=== PATIENT | male | born 1930 | race Caucasian/White ===

== ENCOUNTER 2019-10-30 12:24 | Inpatient (IN) | payer MEDICARE ==
[~2019-10-30] VITALS: Ht 188 cm; Wt 83.0 kg
[2019-10-30] MEDS ORDERED: LIDOCAINE 1% PF 2 ML VIAL. ONE (12:35)
[2019-10-30] MEDS ORDERED: HEPARIN for ARTERIAL LINE 0 ML ONE (12:35)
[2019-10-30] MEDS ORDERED: IODIXANOL 320 MG/ML 100 ML VIAL. ONE (12:35)
[2019-10-30 12:48] LABS: BASO % 1 % (0-3); EOS # 0.3 x10^3/uL (0.0-0.7); EOS % 4 % (0-3); HEMATOCRIT 28.4 % (39.0-53.0); HEMOGLOBIN 9.6 g/dL (13.0-17.5); LYMPH # 1.1 x10^3/uL (1.0-4.8); LYMPH % 12 % (24-48); MEAN CORPUSCULAR HEMOGLOBIN 32 pg (25-35); MEAN CORPUSCULAR HGB CONC 34 g/dL (31-37); MEAN CORPUSCULAR VOLUME 95 fL (79-100); MONO # 0.7 x10^3/uL (0.0-1.1); MONO % 9 % (0-9); NEUT # 6.6 x10^3/uL (1.8-7.7); NEUT % 75 % (31-73); PLATELET COUNT 187 x10^3/uL (140-400); RED BLOOD COUNT 2.99 x10^6/uL (4.30-5.70); RED CELL DISTRIBUTION WIDTH 14.1 % (11.5-14.5); WHITE BLOOD COUNT 8.8 x10^3/uL (4.0-11.0)
[2019-10-30] MEDS ORDERED: HEPARIN for IV BOLUS 10,000 UNIT/10 ML VIAL. ONE (12:48)
[2019-10-30] MEDS ORDERED: MIDAZOLAM HCL/PF 2 MG/2 ML VIAL. ONE (12:48)
[2019-10-30] MEDS ORDERED: fentaNYL PF VIAL 100 MCG/2 ML VIAL ONE (12:48)
[2019-10-30] MEDS ORDERED: NITROGLYCERIN 200 MCG/2 ML SYRINGE FOR CATH/VASC LAB. ONE (12:49)
[2019-10-30] MEDS ORDERED: VERAPAMIL 5 MG/2 ML VIAL. ONE (12:49)
[2019-10-30 12:56] LABS: CREATININE 3.6 mg/dL (0.7-1.3); GFR 16.1; POTASSIUM 5.1 mmol/L (3.5-5.1)
--- NOTE | 2019-10-30 12:56 | RAD ---
Chest AP portable 10/30/2019. Reason for exam: Shortness of breath. There is evidence of some infiltrate in the right upper lobe abutting the minor fissure. The lungs otherwise appear clear and no pleural fluid is seen. Heart size is grossly normal. IMPRESSION: Mild right-sided infiltrate. Electronically signed by: Ace Jolly Jr., MD (10/30/2019 12:53 PM) [facility]
[2019-10-30 12:57] LABS: PROTHROMBIN TIME PATIENT 13.5 SEC (11.7-14.0)
[2019-10-30 13:02] LABS: ALBUMIN 2.9 g/dL (3.4-5.0); ALBUMIN/GLOBULIN RATIO 0.9 (1.0-1.7); MAGNESIUM 1.8 mg/dL (1.8-2.4); TOTAL BILIRUBIN 0.3 mg/dL (0.2-1.0); TOTAL PROTEIN 6.1 g/dL (6.4-8.2)
--- NOTE | 2019-10-30 13:08 | PDOC2 ---
CARDIOLOGY CONSULT NOTE CHIEF COMPLAINT: Chest pain and pressure HPI: 89-year-old man who presented to the ER due to chest pain. He apparently was in his usual state of health and was driving to a baseball game with his daughter and began to notice some chest discomfort. This progressed over the next hour or so to point where he was very weak and unable to move. 911 was called and in route to the STEMI team was activated due to inferior ST-T elevations. Upon arrival to the hospital the patient was hypotensive and had some chest pressure. Repeat EKG revealed subtle ST-T wave changes suggestive of ischemia but not confirmatory of any significant ST elevation. The patient had improvement in his pain and dyspnea. I had a long discussion with the patient's daughter regarding patient's past medical history. He apparently was offered a cardiac catheterization at the [facility] but this was deferred in light of his renal failure history. At this present time the patient wishes to have further cardiac evaluation given that he had significant chest pain and discomfort. His family is also in agreement. PMHX: Coronary artery disease, presumed Hypertension Dyslipidemia Chronic kidney disease Anemia SOCHX: No alcohol, tobacco or illicit drug use. FAMHX: Noncontributory CURRENT MEDS: Currently unavailable for review ALLERGIES: No known drug allergies ROS: Negative for 10 out of 14 systems reviewed unless otherwise mentioned above in HPI PHYSICAL EXAM: Vital Signs/I&O: Blood pressure 80/40, heart rate 62 Physical Exam: GEN.: Currently the patient is no acute distress, when he first arrived he was disoriented due to hypotension HEENT: Head is normocephalic, atraumatic NECK: Supple. LUNGS: Clear to auscultation. HEART: RRR, S1, S2 present. Peripheral pulses intact ABDOMEN: Soft, nontender. Positive bowel sounds. EXTREMITIES: Without any cyanosis. NEUROLOGIC: Normal speech, normal tone PSYCHIATRIC: Normal affect, normal mood. SKIN: No ulcerations DIAGNOSTIC TESTING: EKG is suggestive of subtle inferior ST elevations Labs are reviewed notable for chronic kidney disease with a creatinine 3.6 and anemia. Lab Laboratory Tests Test 10/30/19 12:30 White Blood Count 8.8 x10^3/uL (4.0-11.0) Red Blood Count 2.99 x10^6/uL (4.30-5.70) L Hemoglobin 9.6 g/dL (13.0-17.5) L Hematocrit 28.4 % (39.0-53.0) L Mean Corpuscular Volume 95 fL (79-100) Mean Corpuscular Hemoglobin 32 pg (25-35) Mean Corpuscular Hemoglobin Concent 34 g/dL (31-37) Red Cell Distribution Width 14.1 % (11.5-14.5) Platelet Count 187 x10^3/uL (140-400) Neutrophils (%) (Auto) 75 % (31-73) H Lymphocytes (%) (Auto) 12 % (24-48) L Monocytes (%) (Auto) 9 % (0-9) Eosinophils (%) (Auto) 4 % (0-3) H Basophils (%) (Auto) 1 % (0-3) Neutrophils # (Auto) 6.6 x10^3/uL (1.8-7.7) Lymphocytes # (Auto) 1.1 x10^3/uL (1.0-4.8) Monocytes # (Auto) 0.7 x10^3/uL (0.0-1.1) Eosinophils # (Auto) 0.3 x10^3/uL (0.0-0.7) Basophils # (Auto) 0.0 x10^3/uL (0.0-0.2) Sodium Level 141 mmol/L (136-145) Potassium Level 5.1 mmol/L (3.5-5.1) Chloride Level 109 mmol/L (98-107) H Carbon Dioxide Level 19 mmol/L (21-32) L Anion Gap 13 (6-14) Blood Urea Nitrogen 52 mg/dL (8-26) H Creatinine 3.6 mg/dL (0.7-1.3) H Estimated GFR (Cockcroft-Gault) 16.1 BUN/Creatinine Ratio 14 (6-20) Glucose Level 231 mg/dL (70-99) H Calcium Level 8.0 mg/dL (8.5-10.1) L Total Bilirubin 0.3 mg/dL (0.2-1.0) Aspartate Amino Transf (AST/SGOT) 25 U/L (15-37) Alkaline Phosphatase 129 U/L (46-116) H Total Protein 6.1 g/dL (6.4-8.2) L Albumin 2.9 g/dL (3.4-5.0) L Albumin/Globulin Ratio 0.9 (1.0-1.7) L Laboratory Tests 10/30/19 12:30 ASSESSMENT: 1. Acute coronary syndrome in the setting of chronic kidney disease PLAN: 1. I discussed extensively the risks and benefits with the patient regarding cardiac catheterization. In light of the fact that he had significant cardiac symptoms and he was suggested to have a prior cardiac catheterization I think is reasonable despite his chronic kidney disease to proceed with defining his coronary anatomy and then subsequently determine intervention as necessary. Thank you this consultation. Further recommendations pending cardiac catheterization MAREI SPENCER MD Oct 30, 2019 13:08
[2019-10-30] MEDS ORDERED: ATROPINE 0.5 MG/5 ML DISP.SYRINGE. IV ONE (13:45)
--- NOTE | 2019-10-30 14:26 | PHYS DOC ---
Past Medical History Past Medical History: Diabetes-Type II, Hypertension, Renal Failure Past Surgical History: No Surgical History Smoking Status: Former Smoker Alcohol Use: None General Adult EDM: Chief Complaint: CHEST PAIN HPI: HPI: Patient is a 89 year old male who was brought here by EMS as a code STEMI activation. Initial report was due to syncopal episode and dizziness. Patient was in his car being taken to a baseball game with his daughter, when he suddenly feels dizzy and went blind. Patient passed out for a few. Patient started having chest pain, patient had history of chest pain in the past, was evaluated by miller head assistant wet process at the [facility], recommended to have cardiac catheterization at the time however due to his stage IV renal failure, he declined the procedure. EMS were called, they were taken the patient to the [facility], the initial EKG was sinus rhythm, no ST segment elevation. However the chest pain became more severe so they did another rhythm strip, show slight ST segment elevation in leads II, III and aVF, patient was given 324 mg aspirin, 1 dose of nitroglycerin, 50 traci of fentanyl IV, EMS called here to activate code STEMI and brought patient here. Upon arrival to the ER, patient was pale and diaphoresis, he was in distress, he was bradycardic and extremely hypotensive. His heart rate was in the 38 beats per minutes, blood pressure was 55/35. Patient was given IV fluid, 0.5 mg of atropine, and his heart rate slowly improving here blood pressures slowly improved. ophthalmology technician Dr. Fuentes was at bedside, he evaluated patient, looked at the EKG. Patient's chest pain improved , was considering taking patient to [facility]. Review of Systems: Review of Systems: Constitutional: Denies fever or chills. [] Eyes: Denies change in visual acuity. [] HENT: Denies nasal congestion or sore throat. [] Respiratory: Denies cough or shortness of breath. [] Cardiovascular: Positive chest pain GI: Denies abdominal pain, nausea, vomiting, bloody stools or diarrhea. [] : Denies dysuria. [] Musculoskeletal: Denies back pain or joint pain. [] Integument: Denies rash. [] Neurologic: Denies headache, focal weakness or sensory changes. Positive for syncope Endocrine: Denies polyuria or polydipsia. [] Lymphatic: Denies swollen glands. [] Psychiatric: Denies depression or anxiety. [] Heart Score: HEART Score for Chest Pain: HEART Score for Chest Pain Response (Comments) Value History Highly Suspicious 2 ECG Nonspecific Repolarizatio 1 Age > 65 2 Risk Factors >3 Risk Factors or Hx CAD 2 Troponin < Normal Limit 0 Total 7 Risk Factors: Risk Factors: DM, Current or recent (<one month) smoker, HTN, HLP, family history of CAD, obesity. Risk Scores: Score 0 - 3: 2.5% MACE over next 6 weeks - Discharge Home Score 4 - 6: 20.3% MACE over next 6 weeks - Admit for Clinical Observation Score 7 - 10: 72.7% MACE over next 6 weeks - Early Invasive Strategies Current Medications: Current Medications Medications (Trade) Dose Ordered Sig/Pedro Start Time Stop Time Status Last Admin Dose Admin Atropine Sulfate (ATROPINE 0.5mg SYRINGE) 0.5 mg 1X ONCE 10/30/19 13:45 10/30/19 13:46 DC 10/30/19 12:34 0.5 MG Fentanyl Citrate (Fentanyl 2ml Vial) 100 mcg STK-MED ONCE 10/30/19 12:48 10/30/19 12:49 DC Heparin Sodium (Porcine) (Heparin Sodium) 10,000 unit STK-MED ONCE 10/30/19 12:48 10/30/19 12:49 DC Heparin Sodium/ Sodium Chloride 0 ml @ As Directed STK-MED ONCE 10/30/19 12:35 10/30/19 12:35 DC Iodixanol (Visipaque 320) 100 ml STK-MED ONCE 10/30/19 12:35 10/30/19 12:35 DC Lidocaine HCl (Xylocaine-Mpf 1% 2ml Vial) 2 ml STK-MED ONCE 10/30/19 12:35 10/30/19 12:35 DC Midazolam HCl (Versed) 2 mg STK-MED ONCE 10/30/19 12:48 10/30/19 12:49 DC Nitroglycerin (Nitroglycerin) 200 mcg STK-MED ONCE 10/30/19 12:49 10/30/19 12:49 DC Ondansetron HCl (Zofran) 4 mg PRN Q8HRS PRN 10/30/19 14:30 10/31/19 14:29 Verapamil HCl (Verapamil) 5 mg STK-MED ONCE 10/30/19 12:49 10/30/19 12:49 DC Allergies: Allergies: Allergies Coded Allergies Type Severity Reaction Last Updated Verified Penicillins Allergy Unknown 10/30/19 Yes lovastatin Allergy Unknown 10/30/19 Yes simvastatin Allergy Unknown 10/30/19 Yes Physical Exam: PE: Constitutional: Well developed, well nourished, Moderate acute distress, non- toxic appearance. [] HENT: Normocephalic, atraumatic, bilateral external ears normal, oropharynx moist, no oral exudates, nose normal. [] Eyes: PERRLA, EOMI, conjunctiva normal, no discharge. [] Neck: Normal range of motion, no tenderness, supple, no stridor. [] Cardiovascular: SINUS BRADYCARDIA, regular rhythm, no murmur [] Lungs & Thorax: Bilateral breath sounds clear to auscultation [] Abdomen: Bowel sounds normal, soft, no tenderness, no masses, no pulsatile masses. [] Skin: Warm, dry, PALE... DIAPHORESIS. Back: No tenderness, no CVA tenderness. [] Extremities: No tenderness, no cyanosis, no clubbing, ROM intact, no edema. [] Neurologic: Alert and oriented X 3, normal motor function, normal sensory function, no focal deficits noted. [] Psychologic: Affect normal, judgement normal, mood normal. [] Current Patient Data: Labs: other ROS is negative unless otherwise noted in HPI Laboratory Tests Test 10/30/19 12:30 White Blood Count 8.8 x10^3/uL (4.0-11.0) Red Blood Count 2.99 x10^6/uL (4.30-5.70) L Hemoglobin 9.6 g/dL (13.0-17.5) L Hematocrit 28.4 % (39.0-53.0) L Mean Corpuscular Volume 95 fL (79-100) Mean Corpuscular Hemoglobin 32 pg (25-35) Mean Corpuscular Hemoglobin Concent 34 g/dL (31-37) Red Cell Distribution Width 14.1 % (11.5-14.5) Platelet Count 187 x10^3/uL (140-400) Neutrophils (%) (Auto) 75 % (31-73) H Lymphocytes (%) (Auto) 12 % (24-48) L Monocytes (%) (Auto) 9 % (0-9) Eosinophils (%) (Auto) 4 % (0-3) H Basophils (%) (Auto) 1 % (0-3) Neutrophils # (Auto) 6.6 x10^3/uL (1.8-7.7) Lymphocytes # (Auto) 1.1 x10^3/uL (1.0-4.8) Monocytes # (Auto) 0.7 x10^3/uL (0.0-1.1) Eosinophils # (Auto) 0.3 x10^3/uL (0.0-0.7) Basophils # (Auto) 0.0 x10^3/uL (0.0-0.2) Prothrombin Time 13.5 SEC (11.7-14.0) Prothrombin Time INR 1.1 (0.8-1.1) Activated Partial Thromboplast Time 26 SEC (24-38) Sodium Level 141 mmol/L (136-145) Potassium Level 5.1 mmol/L (3.5-5.1) Chloride Level 109 mmol/L (98-107) H Carbon Dioxide Level 19 mmol/L (21-32) L Anion Gap 13 (6-14) Blood Urea Nitrogen 52 mg/dL (8-26) H Creatinine 3.6 mg/dL (0.7-1.3) H Estimated GFR (Cockcroft-Gault) 16.1 BUN/Creatinine Ratio 14 (6-20) Glucose Level 231 mg/dL (70-99) H Calcium Level 8.0 mg/dL (8.5-10.1) L Magnesium Level 1.8 mg/dL (1.8-2.4) Total Bilirubin 0.3 mg/dL (0.2-1.0) Aspartate Amino Transferase (AST) 25 U/L (15-37) Alanine Aminotransferase (ALT) 40 U/L (16-63) Alkaline Phosphatase 129 U/L (46-116) H Troponin I Quantitative 0.018 ng/mL (0.000-0.055) EP-Enq-T-Type Natriuretic Peptide 585 pg/mL (0-449) H Total Protein 6.1 g/dL (6.4-8.2) L Albumin 2.9 g/dL (3.4-5.0) L Albumin/Globulin Ratio 0.9 (1.0-1.7) L Thyroid Stimulating Hormone (TSH) 0.659 uIU/mL (0.358-3.74) Laboratory Tests 10/30/19 12:30 Laboratory Tests 10/30/19 12:30 Vital Signs: Vital Signs Date Time Temp Pulse Resp B/P (MAP) Pulse Ox O2 Delivery O2 Flow Rate FiO2 10/30/19 12:24 98.0 41 20 58/45 (49) 98 Room Air 98.0 EKG: EKG: EKG was done at 1228, heart rate of 42 beats per minutes, no ST segment elevation ,sinus bradycardia Radiology/Procedures: Radiology/Procedures: [][facility] [address] [place] [address] IMAGING REPORT Signed PATIENT: YOMAIRA EDWARDS ACCOUNT: [id number] : 1930 LOCATION: ER AGE: 89 SEX: M EXAM STATUS: PRE ER ORD. PHYSICIAN: EMMANUELLE MATSON DO REASON: soa PROCEDURE: PORTABLE CHEST 1V Chest AP portable 10/30/2019. Reason for exam: Shortness of breath. There is evidence of some infiltrate in the right upper lobe abutting the minor fissure. The lungs otherwise appear clear and no pleural fluid is seen. Heart size is grossly normal. IMPRESSION: Mild right-sided infiltrate. Electronically signed by: Yomaira Jolly Jr., MD (10/30/2019 12:53 PM) [facility] DICTATED and SIGNED BY: YOMAIRA JOLLY Jr, MD DATE: 10/30/19 1258 Course & Med Decision Making: Course & Med Decision Making Pertinent Labs and Imaging studies reviewed. (See chart for details) Patient is an 89-year-old male who was evaluated in ER due to chest pain, EKG on the field show suspicious for inferior wall IN, code STEMI was activated, patient was seen by miller head assistant wet process Dr. Fuentes, consider cardiac catheterization however due to his stage IV kidney disease, patient declined diagnostic study at this time. Patient will be admitted to the hospital for me dical management. Discussed with Dr. Morin who agrees to admit the patient. Dragon Disclaimer: Dragon Disclaimer: This electronic medical record was generated, in whole or in part, using a voice recognition dictation system. Departure Departure Impression: Primary Impression: Chest pain Additional Impression: Syncope Disposition: ADMITTED INPATIENT Admitting Physician: SB (Dr. Morin) Condition: IMPROVED Referrals: UNKNOWN PCP NAME (PCP) Justicifation of Admission Dx: Justifications for Admission: Justification of Admission Dx: Yes Chronic Renal Failure: Cardiac Arrhythmias EMMANUELLE MATSON DO Oct 30, 2019 14:26
[2019-10-30] MEDS ORDERED: ONDANSETRON PF 4 MG/2 ML VIAL. IV PRN (14:30)
--- NOTE | 2019-10-30 14:31 | PDOC1 ---
History and Physical Date of Admission: Date of Admission DATE: 10/30/19 TIME: 14:28 Chief Complaint: Chief Complain: Chest discomfort History of Present Illness: HPI: This is an elderly male who was at a baseball game and developed chest pain. He is apparently been offered a cardiac cath at the [facility] as well. The ambulance was called the patient was on his way to the [facility] via ambulance but then developed worsening chest pain with some ST changes. The ambulance was diverted to our facility. Patient is now been examined in room 2 where he is slightly improving Upon arrival he was quite hypotensive and bradycardic he apparently did receive some nitroglycerin Cardiology has just talked to the patient and family and we are considering cardiac cath but he has a creatinine of 3.6 Patient is being admitted for now check serial enzymes and serial EKGs and consider cardiac cath I did go ahead and consult nephrology regarding the chronic renal sufficiency Past Medical/Surgical History: PMH/PSH: Probable CAD Hypertension hyperlipidemia Arthritis Allergic rhinitis Anemia Chronic renal insufficiency Allergies: Allergies: Coded Allergies: Penicillins (Verified Allergy, Unknown, 10/30/19) lovastatin (Verified Allergy, Unknown, 10/30/19) simvastatin (Verified Allergy, Unknown, 10/30/19) Family History: Family History: Hypertension and coronary disease Social History: Social History: He is retired he does not drink smoke or take drug Current Medications: Current Medications Current Medications Iodixanol (Visipaque 320) 100 ml STK-MED ONCE .ROUTE ; Start 10/30/19 at 12:35; Stop 10/30/19 at 12:35; Status DC Lidocaine HCl (Xylocaine-Mpf 1% 2ml Vial) 2 ml STK-MED ONCE .ROUTE ; Start 10/30/19 at 12:35; Stop 10/30/19 at 12:35; Status DC Heparin Sodium/ Sodium Chloride 0 ml @ As Directed STK-MED ONCE .ROUTE ; Start 10/30/19 at 12:35; Stop 10/30/19 at 12:35; Status DC Fentanyl Citrate (Fentanyl 2ml Vial) 100 mcg STK-MED ONCE .ROUTE ; Start 10/30/19 at 12:48; Stop 10/30/19 at 12:49; Status DC Midazolam HCl (Versed) 2 mg STK-MED ONCE .ROUTE ; Start 10/30/19 at 12:48; Stop 10/30/19 at 12:49; Status DC Heparin Sodium (Porcine) (Heparin Sodium) 10,000 unit STK-MED ONCE .ROUTE ; Start 10/30/19 at 12:48; Stop 10/30/19 at 12:49; Status DC Verapamil HCl (Verapamil) 5 mg STK-MED ONCE .ROUTE ; Start 10/30/19 at 12:49; Stop 10/30/19 at 12:49; Status DC Nitroglycerin (Nitroglycerin) 200 mcg STK-MED ONCE .ROUTE ; Start 10/30/19 at 12:49; Stop 10/30/19 at 12:49; Status DC Atropine Sulfate (ATROPINE 0.5mg SYRINGE) 0.5 mg 1X ONCE IV Last administered on 10/30/19at 12:34; Start 10/30/19 at 13:45; Stop 10/30/19 at 13:46; Status DC ROS: Review of Systems Review of System REVIEW OF SYSTEMS: GENERAL: Denies weakness SKIN: No bruising, hair changes or rashes. EYES: No blurred, double or loss of vision. NOSE AND THROAT: No history of nosebleeds, hoarseness or sore throat. HEART: No history of palpitations, chest pain or shortness of breath on exertion. LUNGS: Denies cough, hemoptysis, wheezing or shortness of breath. GASTROINTESTINAL: Denies changes in appetite, nausea, vomiting, diarrhea or constipation. GENITOURINARY: No history of frequency, urgency, hesitancy or nocturia. NEUROLOGIC: Denies history of numbness, tingling, or tremor. PSYCHIATRIC: No history of panic, anxiety or depression. ENDOCRINE: No history of heat or cold intolerance, polyuria or polydipsia. EXTREMITIES: Denies joint pain, pain on walking or stiffness. Physical Exam: Vital Signs: Vital Signs Date Time Temp Pulse Resp B/P (MAP) Pulse Ox O2 Delivery O2 Flow Rate FiO2 10/30/19 12:24 98.0 41 20 58/45 (49) 98 Room Air 98.0 Physcial Exam: GEN: No apparent distress. Alert and oriented HEENT: Normal cephalic, atraumatic, external auditory canals are patent EYES: Extraocular muscles are intact, pupil are equally round and reactive to light and accommodation MUSCULOSKELETAL: Well developed , well nourished, good range of motion ENDOCRINE: No thyromegaly was palpated LYMPHATICS: No cervical chain or axillary nodes were noted HEMATOPOIETIC: No bruising NECK: Supple, no JVD, no thyromegaly was noted LUNGS: Clear to auscultation in all lung fang without rhonchi or wheezing HEART: RRR, S!, S2 present. Peripheral pulses intact, no obvious murmurs noted ABDOMEN: Soft, nontender. Positive bowel sounds, no organomegaly, normal bowel sounds EXTREMITIES: Without clubbing, cyanosis, or edema. Pedal pulses intact. Negative Homans sign NEUROLOGIC: Normal speech and tone. A&O x 3, moves all extremities, no obvious focal deficits PSYCHIATRIC: Normal affect, normal mood. Stable SKIN: No ulcerations or rashes, good skin turgor, no jaundice VASCULAR: Good capillary refill, neurovascular bundle appears to be intact Labs: Labs: Laboratory Tests Test 10/30/19 12:30 White Blood Count 8.8 x10^3/uL (4.0-11.0) Red Blood Count 2.99 x10^6/uL (4.30-5.70) Hemoglobin 9.6 g/dL (13.0-17.5) Hematocrit 28.4 % (39.0-53.0) Mean Corpuscular Volume 95 fL (79-100) Mean Corpuscular Hemoglobin 32 pg (25-35) Mean Corpuscular Hemoglobin Concent 34 g/dL (31-37) Red Cell Distribution Width 14.1 % (11.5-14.5) Platelet Count 187 x10^3/uL (140-400) Neutrophils (%) (Auto) 75 % (31-73) Lymphocytes (%) (Auto) 12 % (24-48) Monocytes (%) (Auto) 9 % (0-9) Eosinophils (%) (Auto) 4 % (0-3) Basophils (%) (Auto) 1 % (0-3) Neutrophils # (Auto) 6.6 x10^3/uL (1.8-7.7) Lymphocytes # (Auto) 1.1 x10^3/uL (1.0-4.8) Monocytes # (Auto) 0.7 x10^3/uL (0.0-1.1) Eosinophils # (Auto) 0.3 x10^3/uL (0.0-0.7) Basophils # (Auto) 0.0 x10^3/uL (0.0-0.2) Prothrombin Time 13.5 SEC (11.7-14.0) Prothromb Time International Ratio 1.1 (0.8-1.1) Activated Partial Thromboplast Time 26 SEC (24-38) Sodium Level 141 mmol/L (136-145) Potassium Level 5.1 mmol/L (3.5-5.1) Chloride Level 109 mmol/L (98-107) Carbon Dioxide Level 19 mmol/L (21-32) Anion Gap 13 (6-14) Blood Urea Nitrogen 52 mg/dL (8-26) Creatinine 3.6 mg/dL (0.7-1.3) Estimated GFR (Cockcroft-Gault) 16.1 BUN/Creatinine Ratio 14 (6-20) Glucose Level 231 mg/dL (70-99) Calcium Level 8.0 mg/dL (8.5-10.1) Magnesium Level 1.8 mg/dL (1.8-2.4) Total Bilirubin 0.3 mg/dL (0.2-1.0) Aspartate Amino Transf (AST/SGOT) 25 U/L (15-37) Alanine Aminotransferase (ALT/SGPT) 40 U/L (16-63) Alkaline Phosphatase 129 U/L (46-116) Troponin I Quantitative 0.018 ng/mL (0.000-0.055) YB-Qss-J-Type Natriuretic Peptide 585 pg/mL (0-449) Total Protein 6.1 g/dL (6.4-8.2) Albumin 2.9 g/dL (3.4-5.0) Albumin/Globulin Ratio 0.9 (1.0-1.7) Thyroid Stimulating Hormone (TSH) 0.659 uIU/mL (0.358-3.74) Laboratory Tests Test 10/30/19 12:30 White Blood Count 8.8 x10^3/uL (4.0-11.0) Red Blood Count 2.99 x10^6/uL (4.30-5.70) Hemoglobin 9.6 g/dL (13.0-17.5) Hematocrit 28.4 % (39.0-53.0) Mean Corpuscular Volume 95 fL (79-100) Mean Corpuscular Hemoglobin 32 pg (25-35) Mean Corpuscular Hemoglobin Concent 34 g/dL (31-37) Red Cell Distribution Width 14.1 % (11.5-14.5) Platelet Count 187 x10^3/uL (140-400) Neutrophils (%) (Auto) 75 % (31-73) Lymphocytes (%) (Auto) 12 % (24-48) Monocytes (%) (Auto) 9 % (0-9) Eosinophils (%) (Auto) 4 % (0-3) Basophils (%) (Auto) 1 % (0-3) Neutrophils # (Auto) 6.6 x10^3/uL (1.8-7.7) Lymphocytes # (Auto) 1.1 x10^3/uL (1.0-4.8) Monocytes # (Auto) 0.7 x10^3/uL (0.0-1.1) Eosinophils # (Auto) 0.3 x10^3/uL (0.0-0.7) Basophils # (Auto) 0.0 x10^3/uL (0.0-0.2) Prothrombin Time 13.5 SEC (11.7-14.0) Prothromb Time International Ratio 1.1 (0.8-1.1) Activated Partial Thromboplast Time 26 SEC (24-38) Sodium Level 141 mmol/L (136-145) Potassium Level 5.1 mmol/L (3.5-5.1) Chloride Level 109 mmol/L (98-107) Carbon Dioxide Level 19 mmol/L (21-32) Anion Gap 13 (6-14) Blood Urea Nitrogen 52 mg/dL (8-26) Creatinine 3.6 mg/dL (0.7-1.3) Estimated GFR (Cockcroft-Gault) 16.1 BUN/Creatinine Ratio 14 (6-20) Glucose Level 231 mg/dL (70-99) Calcium Level 8.0 mg/dL (8.5-10.1) Magnesium Level 1.8 mg/dL (1.8-2.4) Total Bilirubin 0.3 mg/dL (0.2-1.0) Aspartate Amino Transf (AST/SGOT) 25 U/L (15-37) Alanine Aminotransferase (ALT/SGPT) 40 U/L (16-63) Alkaline Phosphatase 129 U/L (46-116) Troponin I Quantitative 0.018 ng/mL (0.000-0.055) IF-Hgq-I-Type Natriuretic Peptide 585 pg/mL (0-449) Total Protein 6.1 g/dL (6.4-8.2) Albumin 2.9 g/dL (3.4-5.0) Albumin/Globulin Ratio 0.9 (1.0-1.7) Thyroid Stimulating Hormone (TSH) 0.659 uIU/mL (0.358-3.74) Assessment/Plan Assessment/Plan Chest pain rule out coronary disease in the setting of known chronic renal insufficiency Plan Serial enzymes silica juice Cardiac monitoring Consult cardiology and they have already seen the patient Home meds DVT prophylaxis Full code Consult nephrology Long-term prognosis good Justicifation of Admission Dx: Justifications for Admission: Justification of Admission Dx: Yes Angina: New-Onset TYRON LEIGH III DO Oct 30, 2019 14:31
[2019-10-30 15:30] VITALS: BP 153/78
--- NOTE | 2019-10-30 16:37 | CARD ---
MR#: [id number] Date of Study: 10/30/2019 Ordering Physician: GAGAN SPENCER, Referring Physician: GAGAN SPENCER, Tech: Karli Vealsquez [facility] APPROVED REPORT EXAM: Two-dimensional and M-mode echocardiogram with Doppler and color Doppler. Other Information Quality : Good INDICATION Chest Pain 2D DIMENSIONS Left Atrium(2D)4.4 (1.6-4.0cm)IVSd1.0 (0.7-1.1cm) Aortic Root(2D)3.1 (2.0-3.7cm)LVDd4.9 (3.9-5.9cm) LVOT Diameter2.3 (1.8-2.4cm)PWd0.8 (0.7-1.1cm) LVDs4.1 (2.5-4.0cm)FS (%) 16.0 % SV37.5 mlLVEF(%)50.0 (>50%) M-Mode DIMENSIONS Aortic Cusp Exc1.44 (1.5-2.0cm) Aortic Valve AoV Peak Duy.193.1cm/sAoV VTI42.8cm AO Peak GR.14.9mmHgLVOT VTI 21.40cm AO Mean GR.9mmHgAVA (VTI)2.10cm2 AI P 1/2 Uout079xp Mitral Valve MV E Ptmuodyg19.0cm/sMV DECEL VFBF475yx MV A Lpfdypfm22.2cm/sE/A Ratio0.7 TDI Lateral E' P. V9.46cm/sMedial E' P. V6.24cm/s E/Lateral E'6.4E/Medial E'9.8 Tricuspid Valve TR P. Ecsesgus777ab/sRAP OOQYFKXR3djBw TR Peak Gr.28hgGeRUQD16shRy Pulmonary Vein S1 Jpmoomnm20.3cm/sS2 Fmtwgkre88.05cm/s D2 Hscrnpsu53.1cm/s LEFT VENTRICLE The left ventricle is normal size. There is normal left ventricular wall thickness. The left ventricu lar systolic function is normal and the ejection fraction is within normal range. The Ejection Fracti on is 50-55%. There is normal LV segmental wall motion. Transmitral Doppler flow pattern is Grade I-a bnormal relaxation pattern. RIGHT VENTRICLE The right ventricle is normal size. The right ventricular systolic function is normal. ATRIA The left atrium is mildly dilated. The right atrium size is normal. The interatrial septum is intact with no evidence for an atrial septal defect or patent foramen ovale as noted on 2-D or Doppler imagi ng. AORTIC VALVE The aortic valve is calcified and displays decreased opening. Doppler and Color Flow revealed trace t o mild aortic regurgitation. Calculated aortic valve area is 2.1 cm2 with maximum pressure gradient o f 15 mmHg and mean pressure gradient of 9 mmHg. MITRAL VALVE The mitral valve is calcified but opens well. There is no evidence of mitral valve prolapse. There is no mitral valve stenosis. Doppler and Color Flow revealed no mitral valve regurgitation noted. TRICUSPID VALVE The tricuspid valve is normal in structure and function. Doppler and Color Flow revealed trace tricus pid regurgitation. The PA pressure was estimated at 33 mmHg. There is no tricuspid valve stenosis. PULMONIC VALVE The pulmonic valve is not well visualized. Doppler and Color Flow revealed no pulmonic valvular regur gitation. There is no pulmonic valvular stenosis. GREAT VESSELS The aortic root is normal in size. The ascending aorta is normal in size. The IVC was not visualized. PERICARDIAL EFFUSION There is no evidence of significant pericardial effusion. Critical Notification Critical Value: No <Conclusion> The left ventricular systolic function is normal and the ejection fraction is within normal range. Th e Ejection Fraction is 50-55%. There is normal LV segmental wall motion. Signed by : Gagan Spencer, Electronically Approved : 10/30/2019 16:36:29
[2019-10-30] MEDS ORDERED: CHOL500021 PO (18:05)
[2019-10-30] MEDS ORDERED: FINA5TAB4 PO (18:05)
[2019-10-30] MEDS ORDERED: CALC0.25 PO (18:05)
[2019-10-30] MEDS ORDERED: TAMS0.4C97 PO (18:05)
[2019-10-30] MEDS ORDERED: MONT10TA49 PO (18:05)
[2019-10-30] MEDS ORDERED: FAMO10TA69 PO (18:05)
[2019-10-30] MEDS ORDERED: FOLI0.8T32 PO (18:05)
[2019-10-30] MEDS ORDERED: DILT240C2 PO (18:05)
[2019-10-30 19:00] VITALS: BP 170/70
[2019-10-30 23:00] VITALS: BP 162/69
[2019-10-31 03:00] VITALS: BP 168/76
[2019-10-31 07:00] VITALS: BP 172/83
--- NOTE | 2019-10-31 08:02 | PDOC ---
[employer] PROGRESS NOTE Chief Complaint Chief Complaint A/P: NSTEMI - to cardiac catheterization HTN HLD CKD III - Allergic rhinitis BPH - History of Present Illness History of Present Illness Mr Saavedra is an 89 yo w/ PMHx BPH, HTN, HLD, allergic rhinitis who was at a baseball game and developed chest pain. Found via EMS with some ST changes, inferior ST segmental depressions. Upon arrival he was quite hypotensive and bra dycardic he apparently did receive some nitroglycerin. Cardiology has just talked to the patient and family and he is opposed to cardiac cath due to creatinine of 3.6, he has been offered cath at [facility], but deferred 2/2 CKD and he does not wish to undergo dialysis. Troponin >2, started on heparin GTT today. Symptomatically he is pain free, but depressed, he notes none of his friends were living and his 5 years ago, he does have a very large family with multiple grandchildren and great-grandchildren. He has made it clear he is DNR/DNI. Vitals/I&O Vitals/I&O: Vital Signs Date Time Temp Pulse Resp B/P (MAP) Pulse Ox O2 Delivery O2 Flow Rate FiO2 10/31/19 07:00 98.0 66 18 172/83 (112) 97 Room Air 98.0 I & O 10/30/19 10/30/19 10/31/19 15:00 23:00 07:00 Intake Total 740 ml Output Total 850 ml Balance 740 ml -850 ml Physical Exam General: Alert, Cooperative Heart: Regular rate, Normal S1, Normal S2 Labs Labs: Laboratory Tests Test 10/30/19 12:30 10/30/19 19:00 10/31/19 00:10 10/31/19 06:15 White Blood Count 8.8 x10^3/uL (4.0-11.0) Red Blood Count 2.99 x10^6/uL (4.30-5.70) Hemoglobin 9.6 g/dL (13.0-17.5) Hematocrit 28.4 % (39.0-53.0) Mean Corpuscular Volume 95 fL (79-100) Mean Corpuscular Hemoglobin 32 pg (25-35) Mean Corpuscular Hemoglobin Concent 34 g/dL (31-37) Red Cell Distribution Width 14.1 % (11.5-14.5) Platelet Count 187 x10^3/uL (140-400) Neutrophils (%) (Auto) 75 % (31-73) Lymphocytes (%) (Auto) 12 % (24-48) Monocytes (%) (Auto) 9 % (0-9) Eosinophils (%) (Auto) 4 % (0-3) Basophils (%) (Auto) 1 % (0-3) Neutrophils # (Auto) 6.6 x10^3/uL (1.8-7.7) Lymphocytes # (Auto) 1.1 x10^3/uL (1.0-4.8) Monocytes # (Auto) 0.7 x10^3/uL (0.0-1.1) Eosinophils # (Auto) 0.3 x10^3/uL (0.0-0.7) Basophils # (Auto) 0.0 x10^3/uL (0.0-0.2) Prothrombin Time 13.5 SEC (11.7-14.0) Prothromb Time International Ratio 1.1 (0.8-1.1) Activated Partial Thromboplast Time 26 SEC (24-38) Sodium Level 141 mmol/L (136-145) Potassium Level 5.1 mmol/L (3.5-5.1) Chloride Level 109 mmol/L (98-107) Carbon Dioxide Level 19 mmol/L (21-32) Anion Gap 13 (6-14) Blood Urea Nitrogen 52 mg/dL (8-26) Creatinine 3.6 mg/dL (0.7-1.3) Estimated GFR (Cockcroft-Gault) 16.1 BUN/Creatinine Ratio 14 (6-20) Glucose Level 231 mg/dL (70-99) Calcium Level 8.0 mg/dL (8.5-10.1) Magnesium Level 1.8 mg/dL (1.8-2.4) Total Bilirubin 0.3 mg/dL (0.2-1.0) Aspartate Amino Transf (AST/SGOT) 25 U/L (15-37) Alanine Aminotransferase (ALT/SGPT) 40 U/L (16-63) Alkaline Phosphatase 129 U/L (46-116) Troponin I Quantitative 0.018 ng/mL (0.000-0.055) 0.056 ng/mL (0.000-0.055) 1.187 ng/mL (0.000-0.055) 2.717 ng/mL (0.000-0.055) AT-Pax-V-Type Natriuretic Peptide 585 pg/mL (0-449) Total Protein 6.1 g/dL (6.4-8.2) Albumin 2.9 g/dL (3.4-5.0) Albumin/Globulin Ratio 0.9 (1.0-1.7) Thyroid Stimulating Hormone (TSH) 0.659 uIU/mL (0.358-3.74) Assessment and Plan Assessmemt and Plan Problems Medical Problems: (1) Chest pain Status: Acute (2) Syncope Status: Acute Comment Review of Relevant I have reviewed the following items julienne (where applicable) has been applied. Medications: Current Medications Medications (Trade) Dose Ordered Sig/Pedro Route PRN Reason Start Time Stop Time Status Last Admin Dose Admin Atropine Sulfate (ATROPINE 0.5mg SYRINGE) 0.5 mg 1X ONCE IV 10/30/19 13:45 10/30/19 13:46 DC 10/30/19 12:34 Justicifation of Admission Dx: Justifications for Admission: Justification of Admission Dx: Yes Chronic Renal Failure: Cardiac Arrhythmias Angina: New-Onset SANJU ROBERTS MD Oct 31, 2019 08:02
[2019-10-31] MEDS: FOLIC/VIT B COMP W-C (RENAL) TABLET. PO SCH (08:26)
[2019-10-31] MEDS: FINASTERIDE 5 MG TABLET. PO SCH (08:26)
[2019-10-31] MEDS: TAMSULOSIN 0.4 MG CAP.ER.24H. PO SCH (08:27)
--- NOTE | 2019-10-31 10:46 | NUR ---
SS following for discharge planning. SS reviewed pt chart and discussed with pt RN. Pt is from home and is currently on room air. Discharge plan is to home when ready. SS will continue to follow for discharge planning.
[2019-10-31 11:00] VITALS: BP 183/84
--- NOTE | 2019-10-31 12:26 | PDOC ---
[address]I [address] [employer]KE COUPLER 10/31/19 1225: CARDIO Progress Notes Date and Time Date of Service 10/31/19 Time of Evaluation 1150 Subjective Subjective: No Chest Pain, No shortness of breath, No Palpitations Vitals Vitals Vital Signs Date Time Temp Pulse Resp B/P (MAP) Pulse Ox O2 Delivery O2 Flow Rate FiO2 10/31/19 11:00 97.8 67 20 183/84 (117) 96 Room Air 97.8 Weight Weight [ ] Input and Output Intake and Output Intake and Output 10/31/19 07:00 Intake Total 740 ml Output Total 850 ml Balance -110 ml Intake Oral 740 ml Output Urine Total 850 ml # Voids 3 Laboratory Labs Laboratory Tests Test 10/30/19 12:30 10/30/19 12:34 10/30/19 19:00 10/31/19 00:10 White Blood Count 8.8 x10^3/uL (4.0-11.0) Red Blood Count 2.99 x10^6/uL (4.30-5.70) Hemoglobin 9.6 g/dL (13.0-17.5) Hematocrit 28.4 % (39.0-53.0) Mean Corpuscular Volume 95 fL (79-100) Mean Corpuscular Hemoglobin 32 pg (25-35) Mean Corpuscular Hemoglobin Concent 34 g/dL (31-37) Red Cell Distribution Width 14.1 % (11.5-14.5) Platelet Count 187 x10^3/uL (140-400) Neutrophils (%) (Auto) 75 % (31-73) Lymphocytes (%) (Auto) 12 % (24-48) Monocytes (%) (Auto) 9 % (0-9) Eosinophils (%) (Auto) 4 % (0-3) Basophils (%) (Auto) 1 % (0-3) Neutrophils # (Auto) 6.6 x10^3/uL (1.8-7.7) Lymphocytes # (Auto) 1.1 x10^3/uL (1.0-4.8) Monocytes # (Auto) 0.7 x10^3/uL (0.0-1.1) Eosinophils # (Auto) 0.3 x10^3/uL (0.0-0.7) Basophils # (Auto) 0.0 x10^3/uL (0.0-0.2) Prothrombin Time 13.5 SEC (11.7-14.0) Prothromb Time International Ratio 1.1 (0.8-1.1) Activated Partial Thromboplast Time 26 SEC (24-38) Sodium Level 141 mmol/L (136-145) Potassium Level 5.1 mmol/L (3.5-5.1) Chloride Level 109 mmol/L (98-107) Carbon Dioxide Level 19 mmol/L (21-32) Anion Gap 13 (6-14) Blood Urea Nitrogen 52 mg/dL (8-26) Creatinine 3.6 mg/dL (0.7-1.3) Estimated GFR (Cockcroft-Gault) 16.1 BUN/Creatinine Ratio 14 (6-20) Glucose Level 231 mg/dL (70-99) Calcium Level 8.0 mg/dL (8.5-10.1) Magnesium Level 1.8 mg/dL (1.8-2.4) Total Bilirubin 0.3 mg/dL (0.2-1.0) Aspartate Amino Transf (AST/SGOT) 25 U/L (15-37) Alanine Aminotransferase (ALT/SGPT) 40 U/L (16-63) Alkaline Phosphatase 129 U/L (46-116) Troponin I Quantitative 0.018 ng/mL (0.000-0.055) 0.056 ng/mL (0.000-0.055) 1.187 ng/mL (0.000-0.055) AU-Iwt-U-Type Natriuretic Peptide 585 pg/mL (0-449) Total Protein 6.1 g/dL (6.4-8.2) Albumin 2.9 g/dL (3.4-5.0) Albumin/Globulin Ratio 0.9 (1.0-1.7) Thyroid Stimulating Hormone (TSH) 0.659 uIU/mL (0.358-3.74) Bedside Troponin I 0.01 ng/ml (<0.08) Test 10/31/19 06:15 Troponin I Quantitative 2.717 ng/mL (0.000-0.055) Physical Exam HEENT: Neck Supple W Full Motion Chest: Symmetric LUNGS: Clear to Auscultation Heart: S1S2, murmurs (2/6 systolic murmur) Abdomen: Soft N/T Extremities: No Edema Neurology: alert, oriented, follow commands Assessment Assessment 1. ACS; Echo with preserved LV systolic. Refused left heart catheterization due to renal disease, risk for JOSE. 2. CKD 3. Hypertension Recommendations Hep gtt Will start ASA, Plavix BB therapy Lipid panel. Allergy to statins Monitor overnight with possible discharge tomorrow. Cardiac rehab referral. Supportive care Justicifation of Admission Dx: Justifications for Admission: Justification of Admission Dx: Yes Chronic Renal Failure: Cardiac Arrhythmias Angina: New-Onset MARIE SPNECER MD 10/31/19 2316: CARDIO Progress Notes Plan Plan Pt. seen and examined. Agree with above HAIR ROOTING MACHINE OPERATOR note. Discussed with family at bedside. YENI SCHULZ APRN Oct 31, 2019 12:25 MARIE SPENCER MD Oct 31, 2019 23:16
[2019-10-31] MEDS ORDERED: HEPARIN for IV BOLUS 10,000 UNIT/10 ML VIAL. IV PRN (12:30)
[2019-10-31] MEDS: CLOPIDOGREL BISULFATE 75 MG TABLET PO SCH (12:40)
[2019-10-31] MEDS: ASPIRIN ENTERIC COATED 81 MG TABLET.DR. PO SCH (12:40)
[2019-10-31] MEDS: HEPARIN 25,000UTS/250ML PREMIX 250 ML IV PRN (12:45)
[2019-10-31 13:04] LABS: CHOLESTEROL/HDL RATIO 2.7
--- NOTE | 2019-10-31 14:16 | PDOC2 ---
CONSULT Date of Consult Date of Consult DATE: 10/31/19 TIME: 14:02 Reason for Consult Reason for Consult: CKD Identification/Chief Complaint Chief Complaint No complaints currently, states has refused cardiac cath, he doesnt want to go on Dialysis Source Source: Chart review, Patient History of Present Illness Reason for Visit: 89-year-old CM who presented to the ER due to chest pain. He was in his usual state of health and was driving to a baseball game with his daughter and began to notice some chest discomfort. It progressed over the next hour or so to point where he was very weak and unable to move. 911 was called and en route to the [place] the STEMI team was activated due to inferior ST-T elevations and pt brought to [facility] Upon arrival to the hospital the patient was hypotensive and had some chest pressure. Repeat EKG revealed subtle ST-T wave changes suggestive of ischemia but not confirmatory of any significant ST elevation. Currently his family is at bed side. He denies any CP or SOB. He denies any N/V. No abdominal pain or diarrhea. Denies any F/C/Cough . No urinary complaints, No dysuria, hematuria He has known CKD- follows with Dr. Valles, Informatics Pharmacist at [facility]. He reports his baseline Renal function has been 18-20% and he has dw Dr. Valles that he will not go on HD Cardiac cath recommended by cardiology but pt declined due to risk of worsening renal function and he doesnt want to be on Dialysis . Past Medical History Past Medical History Coronary artery disease, presumed Hypertension Dyslipidemia Chronic kidney disease stage 4 Anemia Family History Family History Noncontributory Social History Social History No alcohol, tobacco or illicit drug use. Current Problem List Problem List Problems Medical Problems: (1) Chest pain Status: Acute (2) Syncope Status: Acute Current Medications Current Medications Current Medications Iodixanol (Visipaque 320) 100 ml STK-MED ONCE .ROUTE ; Start 10/30/19 at 12:35; Stop 10/30/19 at 12:35; Status DC Lidocaine HCl (Xylocaine-Mpf 1% 2ml Vial) 2 ml STK-MED ONCE .ROUTE ; Start at 12:35; Stop 10/30/19 at 12:35; Status DC Heparin Sodium/ Sodium Chloride 0 ml @ As Directed STK-MED ONCE .ROUTE ; Start 10/30/19 at 12:35; Stop 10/30/19 at 12:35; Status DC Fentanyl Citrate (Fentanyl 2ml Vial) 100 mcg STK-MED ONCE .ROUTE ; Start 10/30/19 at 12:48; Stop 10/30/19 at 12:49; Status DC Midazolam HCl (Versed) 2 mg STK-MED ONCE .ROUTE ; Start 10/30/19 at 12:48; Stop 10/30/19 at 12:49; Status DC Heparin Sodium (Porcine) (Heparin Sodium) 10,000 unit STK-MED ONCE .ROUTE ; Start 10/30/19 at 12:48; Stop 10/30/19 at 12:49; Status DC Verapamil HCl (Verapamil) 5 mg STK-MED ONCE .ROUTE ; Start 10/30/19 at 12:49; Stop 10/30/19 at 12:49; Status DC Nitroglycerin (Nitroglycerin) 200 mcg STK-MED ONCE .ROUTE ; Start 10/30/19 at 12:49; Stop 10/30/19 at 12:49; Status DC Atropine Sulfate (ATROPINE 0.5mg SYRINGE) 0.5 mg 1X ONCE IV Last administered on 10/30/19at 12:34; Start 10/30/19 at 13:45; Stop 10/30/19 at 13:46; Status DC Ondansetron HCl (Zofran) 4 mg PRN Q8HRS PRN IV NAUSEA/VOMITING; Start 10/30/19 at 14:30; Stop 10/31/19 at 14:29 Calcitriol (Rocaltrol) 0.25 mcg Oswald PO ; Start 11/06/19 at 09:00 Diltiazem HCl (Cardizem 24hr Cd) 240 mg DAILY PO Last administered on 10/31/19at 08:26; Start 10/31/19 at 09:00 Finasteride (Proscar) 5 mg DAILY PO Last administered on 10/31/19at 08:26; Start 10/31/19 at 09:00 Vitamin B Complex/ Vitamin C (Safia-Carol) 1 tab DAILY PO Last administered on 10/31/19at 08:26; Start 10/31/19 at 09:00 Montelukast Sodium (Singulair) 10 mg HS PO ; Start 10/31/19 at 21:00 Tamsulosin HCl (Flomax) 0.8 mg DAILY PO Last administered on 10/31/19at 08:27; Start 10/31/19 at 09:00 Heparin Sodium/ Dextrose 250 ml @ 10 mls/hr CONT PRN IV PER PROTOCOL Last administered on 10/31/19at 12:45; Start 10/31/19 at 12:30 Heparin Sodium (Porcine) (Heparin Sodium) 2,100 unit PRN Q6HRS PRN IV FOR UFH LEVEL LESS THAN 0.2; Start 10/31/19 at 12:30 Aspirin (Ecotrin) 81 mg DAILYWBKFT PO Last administered on 10/31/19at 12:40; Start 10/31/19 at 13:00 Clopidogrel Bisulfate (Plavix) 75 mg DAILYWBKFT PO Last administered on 10/31/19at 12:40; Start 10/31/19 at 13:00 Active Scripts Active Reported Finasteride 5 Mg Tablet 1 Tab PO DAILY Renal-Carol Tablet (Folic Acid/Vit Bcomp,C) 0.8 Mg Tablet 1 Tab PO DAILY 30 Days Cardizem Cd (Diltiazem Hcl) 240 Mg Cap.er.24h 1 Cap PO DAILY D3-50 (Cholecalciferol (Vitamin D3)) 50,000 Unit Capsule 50,000 Unit PO DAILY Calcitriol 0.25 Mcg Capsule 1 Cap PO TWICE WEEKLY Montelukast Sodium Tablet (Montelukast Sodium) 10 Mg Tablet 10 Mg PO HS Flomax (Tamsulosin Hcl) 0.4 Mg Cap.er.24h 2 Cap PO DAILY Famotidine 10 Mg Tablet 5 Mg PO BID Allergies Allergies: Coded Allergies: Penicillins (Verified Allergy, Intermediate, 10/31/19) lovastatin (Verified Allergy, Intermediate, 10/31/19) simvastatin (Verified Allergy, Intermediate, 10/31/19) ROS Review of System Negative ROS except positives as noted in HPI Physical Exam Physical Exam GEN.: NAD , propped up in bed with family at bedside HEENT: OM moist NECK: Supple. LUNGS: Clear to auscultation, Non labored HEART: RRR, S1, S2 present. ABDOMEN: Soft, nontender. Positive bowel sounds. EXTREMITIES: Without any cyanosis, No edema NEUROLOGIC: Normal speech, normal tone, grossly normal PSYCHIATRIC: Tearful , doesn't want to go on HD SKIN: No rash No alvarez, No cva or SP tenderness Vital Signs Vital Signs Date Time Temp Pulse Resp B/P (MAP) Pulse Ox O2 Delivery O2 Flow Rate FiO2 10/31/19 11:00 97.8 67 20 183/84 (117) 96 Room Air 97.8 Assessment & Plan CKD Stage 4- No records available from [place] , No labs this am Per pt and daughter baseline renal function 18-[address] Valles, Informatics Pharmacist at [facility] q 3 months He has dw with her as well that he will not go on Dialysis E-Lytes stable, No uremic symptoms Supportive care, IVF (If pt changes his mind about Cardiac cath) , I/O, Obtain records from [place] (Kai RN) Anemia - baseline unknown Acute Coronary syndrome- Pt refused cardiac cath due to risk of worsening renal function , may need TRAIN SYSTEM OPERATOR Labs Labs Laboratory Tests Test 10/30/19 12:30 10/30/19 12:34 10/30/19 19:00 10/31/19 00:10 White Blood Count 8.8 x10^3/uL (4.0-11.0) Red Blood Count 2.99 x10^6/uL (4.30-5.70) Hemoglobin 9.6 g/dL (13.0-17.5) Hematocrit 28.4 % (39.0-53.0) Mean Corpuscular Volume 95 fL (79-100) Mean Corpuscular Hemoglobin 32 pg (25-35) Mean Corpuscular Hemoglobin Concent 34 g/dL (31-37) Red Cell Distribution Width 14.1 % (11.5-14.5) Platelet Count 187 x10^3/uL (140-400) Neutrophils (%) (Auto) 75 % (31-73) Lymphocytes (%) (Auto) 12 % (24-48) Monocytes (%) (Auto) 9 % (0-9) Eosinophils (%) (Auto) 4 % (0-3) Basophils (%) (Auto) 1 % (0-3) Neutrophils # (Auto) 6.6 x10^3/uL (1.8-7.7) Lymphocytes # (Auto) 1.1 x10^3/uL (1.0-4.8) Monocytes # (Auto) 0.7 x10^3/uL (0.0-1.1) Eosinophils # (Auto) 0.3 x10^3/uL (0.0-0.7) Basophils # (Auto) 0.0 x10^3/uL (0.0-0.2) Prothrombin Time 13.5 SEC (11.7-14.0) Prothromb Time International Ratio 1.1 (0.8-1.1) Activated Partial Thromboplast Time 26 SEC (24-38) Sodium Level 141 mmol/L (136-145) Potassium Level 5.1 mmol/L (3.5-5.1) Chloride Level 109 mmol/L (98-107) Carbon Dioxide Level 19 mmol/L (21-32) Anion Gap 13 (6-14) Blood Urea Nitrogen 52 mg/dL (8-26) Creatinine 3.6 mg/dL (0.7-1.3) Estimated GFR (Cockcroft-Gault) 16.1 BUN/Creatinine Ratio 14 (6-20) Glucose Level 231 mg/dL (70-99) Calcium Level 8.0 mg/dL (8.5-10.1) Magnesium Level 1.8 mg/dL (1.8-2.4) Total Bilirubin 0.3 mg/dL (0.2-1.0) Aspartate Amino Transf (AST/SGOT) 25 U/L (15-37) Alanine Aminotransferase (ALT/SGPT) 40 U/L (16-63) Alkaline Phosphatase 129 U/L (46-116) Troponin I Quantitative 0.018 ng/mL (0.000-0.055) 0.056 ng/mL (0.000-0.055) 1.187 ng/mL (0.000-0.055) RR-Ilk-H-Type Natriuretic Peptide 585 pg/mL (0-449) Total Protein 6.1 g/dL (6.4-8.2) Albumin 2.9 g/dL (3.4-5.0) Albumin/Globulin Ratio 0.9 (1.0-1.7) Thyroid Stimulating Hormone (TSH) 0.659 uIU/mL (0.358-3.74) Bedside Troponin I 0.01 ng/ml (<0.08) Test 10/31/19 06:15 Troponin I Quantitative 2.717 ng/mL (0.000-0.055) Triglycerides Level 72 mg/dL (0-150) Cholesterol Level 98 mg/dL (0-200) LDL Cholesterol, Calculated 48 mg/dL (0-100) VLDL Cholesterol, Calculated 14 mg/dL (0-40) Non-HDL Cholesterol Calculated 62 mg/dL (0-129) HDL Cholesterol 36 mg/dL (40-60) Cholesterol/HDL Ratio 2.7 Laboratory Tests Test 10/30/19 19:00 10/31/19 00:10 10/31/19 06:15 Troponin I Quantitative 0.056 ng/mL (0.000-0.055) 1.187 ng/mL (0.000-0.055) 2.717 ng/mL (0.000-0.055) Triglycerides Level 72 mg/dL (0-150) Cholesterol Level 98 mg/dL (0-200) LDL Cholesterol, Calculated 48 mg/dL (0-100) VLDL Cholesterol, Calculated 14 mg/dL (0-40) Non-HDL Cholesterol Calculated 62 mg/dL (0-129) HDL Cholesterol 36 mg/dL (40-60) Cholesterol/HDL Ratio 2.7 Review All relevant outside records, renal labs, imaging studies, telemetry/EKG's were reviewed. Images Images There is evidence of some infiltrate in the right upper lobe abutting the minor fissure. The lungs otherwise appear clear and no pleural fluid is seen. Heart size is grossly normal. IMPRESSION: Mild right-sided infiltrate. SONJA GHOSH MD Oct 31, 2019 14:16
[2019-10-31 15:00] VITALS: BP 142/69
[2019-10-31] MEDS ORDERED: ATROPINE 0.5 MG/5 ML DISP.SYRINGE. ONE (15:16)
[2019-10-31] MEDS: METOPROLOL TART IMMED RELEASE 50 MG TABLET. PO SCH ×2 (16:00→20:29)
[2019-10-31 19:18] VITALS: BP 138/66
[2019-10-31] MEDS ORDERED: MONTELUKAST SODIUM 10 MG TABLET. PO SCH (21:00)
[2019-10-31 22:19] VITALS: BP 136/70
[2019-11-01 02:48] VITALS: BP 113/71
[2019-11-01 03:43] LABS: CALCIUM 7.8 mg/dL (8.5-10.1); CREATININE 3.1 mg/dL (0.7-1.3); GFR 19.2
[2019-11-01 05:24] LABS: HEMATOCRIT 27.1 % (39.0-53.0); HEMOGLOBIN 9.2 g/dL (13.0-17.5); RED BLOOD COUNT 2.86 x10^6/uL (4.30-5.70); RED CELL DISTRIBUTION WIDTH 14.2 % (11.5-14.5); WHITE BLOOD COUNT 7.5 x10^3/uL (4.0-11.0)
[2019-11-01 07:00] VITALS: BP 154/66
[2019-11-01] MEDS: HEPARIN 25,000UTS/250ML PREMIX 250 ML IV PRN (07:36)
--- NOTE | 2019-11-01 08:04 | EKG ---
[facility] [address] [place] [address] Test Date: 2019-10-30 Test Time: 12:29:31 Pat Name: YOMAIRA EDWARDS Department: Room: Gender: M Expert Witness: : [id number] Requested By: EMMANUELLE MATSON Order Number: [id number] Reading MD: Measurements Intervals [place] Rate: 42 P: DE: QRS: 32 QRSD: 96 T: 12 QT: 426 QTc: 358 Interpretive Statements IRREGULAR RHYTHM, NO P-WAVE FOUND T ABNORMALITY IN ANTEROLATERAL LEADS INFEROLATERAL LEADS ABNORMAL ECG RI6.02 No previous ECG available for comparison
[2019-11-01] MEDS: ASPIRIN ENTERIC COATED 81 MG TABLET.DR. PO SCH (08:11)
[2019-11-01] MEDS: METOPROLOL TART IMMED RELEASE 50 MG TABLET. PO SCH (08:11)
[2019-11-01] MEDS: CLOPIDOGREL BISULFATE 75 MG TABLET PO SCH (08:11)
[2019-11-01] MEDS: TAMSULOSIN 0.4 MG CAP.ER.24H. PO SCH (08:11)
[2019-11-01] MEDS: FOLIC/VIT B COMP W-C (RENAL) TABLET. PO SCH (08:12)
[2019-11-01] MEDS: FINASTERIDE 5 MG TABLET. PO SCH (08:12)
--- NOTE | 2019-11-01 08:34 | PDOC ---
[employer] PROGRESS NOTE Date of Service DOS: DATE: 11/01/19 TIME: 08:32 Chief Complaint Chief Complaint A/P: NSTEMI -GTT, cardiology following. Patient clarified that he will not undergo cardiac catheterization due to concern for contrast nephropathy and desire not to undergo dialysis HTN HLD JENNA on CKD III - improved with gentle IVF resuscitation. Likely 2/2 vasomotor nephropathy with his NSTEMI Allergic rhinitis BPH - History of Present Illness History of Present Illness Mr Saavedra is an 89 yo w/ PMHx BPH, HTN, HLD, allergic rhinitis who was at a baseball game and developed chest pain. Found via EMS with some ST changes, inferior ST segmental depressions. Upon arrival he was quite hypotensive and bradycardic he apparently did receive some nitroglycerin. 10/30: Cardiology has just talked to the patient and family and he is opposed to cardiac cath due to creatinine of 3.6, he has been offered cath at [facility], but deferred 2/2 CKD and he does not wish to undergo dialysis. Troponin >2, started on heparin GTT today. Symptomatically he is pain free, but depressed, he notes none of his friends were living and his 5 years ago, he does have a very large family with multiple grandchildren and great-grandchildren. He has made it clear he is DNR/DNI. Cr down to 3.1 today. CP resolved. on heparin GTT. discussed with family bedside plans to discharge home on dual antiplatelet therapy and change to metoprolol from diltiazem and have as needed nitroglycerin at home and have outpatient cardiology follow-up Vitals/I&O Vitals/I&O: Vital Signs Date Time Temp Pulse Resp B/P (MAP) Pulse Ox O2 Delivery O2 Flow Rate FiO2 11/01/19 08:11 60 113/71 11/01/19 07:00 97.9 18 95 Room Air 97.9 I & O 10/31/19 10/31/19 11/01/19 15:00 23:00 07:00 Intake Total 360 ml 500 ml 940 ml Output Total 900 ml 725 ml 650 ml Balance -540 ml -225 ml 290 ml Physical Exam General: Alert, Cooperative Heart: Regular rate, Normal S1, Normal S2 Labs Labs: Laboratory Tests Test 10/31/19 18:00 11/01/19 01:30 Heparin Anti-Xa Act, Unfractionated 0.25 IU/mL (0.30-0.70) 0.32 IU/mL (0.30-0.70) White Blood Count 7.5 x10^3/uL (4.0-11.0) Red Blood Count 2.86 x10^6/uL (4.30-5.70) Hemoglobin 9.2 g/dL (13.0-17.5) Hematocrit 27.1 % (39.0-53.0) Mean Corpuscular Volume 95 fL (79-100) Mean Corpuscular Hemoglobin 32 pg (25-35) Mean Corpuscular Hemoglobin Concent 34 g/dL (31-37) Red Cell Distribution Width 14.2 % (11.5-14.5) Platelet Count 148 x10^3/uL (140-400) Sodium Level 140 mmol/L (136-145) Potassium Level 5.0 mmol/L (3.5-5.1) Chloride Level 110 mmol/L (98-107) Carbon Dioxide Level 20 mmol/L (21-32) Anion Gap 10 (6-14) Blood Urea Nitrogen 45 mg/dL (8-26) Creatinine 3.1 mg/dL (0.7-1.3) Estimated GFR (Cockcroft-Gault) 19.2 Glucose Level 102 mg/dL (70-99) Calcium Level 7.8 mg/dL (8.5-10.1) Troponin I Quantitative 1.872 ng/mL (0.000-0.055) Assessment and Plan Assessmemt and Plan Problems Medical Problems: (1) Chest pain Status: Acute (2) Syncope Status: Acute Comment Review of Relevant I have reviewed the following items julienne (where applicable) has been applied. Medications: Current Medications Medications (Trade) Dose Ordered Sig/Pedro Route PRN Reason Start Time Stop Time Status Last Admin Dose Admin Diltiazem HCl (Cardizem 24hr Cd) 240 mg DAILY PO 10/31/19 09:00 10/31/19 16:06 DC 10/31/19 08:26 Finasteride (Proscar) 5 mg DAILY PO 10/31/19 09:00 11/01/19 08:12 Vitamin B Complex/ Vitamin C (Safia-Carol) 1 tab DAILY PO 10/31/19 09:00 11/01/19 08:12 Montelukast Sodium (Singulair) 10 mg HS PO 10/31/19 21:00 10/31/19 20:28 Tamsulosin HCl (Flomax) 0.8 mg DAILY PO 10/31/19 09:00 11/01/19 08:11 Heparin Sodium/ Dextrose 250 ml @ 10 mls/hr CONT PRN IV PER PROTOCOL 10/31/19 12:30 11/01/19 07:36 Aspirin (Ecotrin) 81 mg DAILYWBKFT PO 10/31/19 13:00 11/01/19 08:11 Clopidogrel Bisulfate (Plavix) 75 mg DAILYWBKFT PO 10/31/19 13:00 11/01/19 08:11 Metoprolol Tartrate (Lopressor) 50 mg BID PO 10/31/19 16:00 11/01/19 08:11 Justicifation of Admission Dx: Justifications for Admission: Justification of Admission Dx: Yes Chronic Renal Failure: Cardiac Arrhythmias Angina: New-Onset SANJU ROBERTS MD Nov 01, 2019 08:34
--- NOTE | 2019-11-01 09:09 | PDOC ---
DATE OF SERVICE DATE: 11/01/19 SUBJECTIVE ROS Stable, states feeling good, denies CP or SOB and is ready to go home OBJECTIVE Vital Signs Vital Signs Date Time Temp Pulse Resp B/P (MAP) Pulse Ox O2 Delivery O2 Flow Rate FiO2 11/01/19 08:11 60 113/71 11/01/19 07:00 97.9 18 95 Room Air 97.9 I & 0 Intake and Output 11/01/19 07:00 Intake Total 1800 ml Output Total 2275 ml Balance -475 ml Intake Oral 1660 ml IV Total 140 ml Output Urine Total 2275 ml PHYSICAL EXAM Physical Exam GEN.: NAD , propped up in bed HEENT: OM moist NECK: Supple. LUNGS: Clear to auscultation, Non labored HEART: RRR, S1, S2 present. ABDOMEN: Soft, nontender. Positive bowel sounds. 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25 mcg Oswald 11/06/19 09:00 Clopidogrel Bisulfate (Plavix) 75 mg DAILYWBKFT 10/31/19 13:00 11/01/19 08:11 75 MG Diltiazem HCl (Cardizem 24hr ) 240 mg DAILY 8/3/20 09:00 10/31/19 16:06 DC 10/31/19 08:26 240 MG Fentanyl Citrate (Fentanyl 2ml Vial) 100 mcg STK-MED ONCE 10/30/19 12:48 10/30/19 12:49 DC Finasteride (Proscar) 5 mg DAILY 10/31/19 09:00 11/01/19 08:12 5 MG Heparin Sodium (Porcine) (Heparin Sodium) 2,100 unit PRN Q6HRS PRN 10/31/19 12:30 Heparin Sodium/ Dextrose 250 ml @ 10 mls/hr CONT PRN 10/31/19 12:30 11/01/19 07:36 10 MLS/HR Heparin Sodium/ Sodium Chloride 0 ml @ As Directed STK-MED ONCE 10/30/19 12:35 10/30/19 12:35 DC Iodixanol (Visipaque 320) 100 ml STK-MED ONCE 10/30/19 12:35 10/30/19 12:35 DC Lidocaine HCl (Xylocaine-Mpf 1% 2ml Vial) 2 ml STK-MED ONCE 10/30/19 12:35 10/30/19 12:35 DC Metoprolol Tartrate (Lopressor) 50 mg BID 10/31/19 16:00 11/01/19 08:11 50 MG Midazolam HCl (Versed) 2 mg STK-MED ONCE 10/30/19 12:48 10/30/19 12:49 DC Montelukast Sodium (Singulair) 10 mg HS 10/31/19 21:00 10/31/19 20:28 10 MG Nitroglycerin (Nitroglycerin) 200 mcg STK-MED ONCE 10/30/19 12:49 10/30/19 12:49 DC Ondansetron HCl (Zofran) 4 mg PRN Q8HRS PRN 10/30/19 14:30 10/31/19 14:29 DC Tamsulosin HCl (Flomax) 0.8 mg DAILY 10/31/19 09:00 11/01/19 08:11 0.8 MG Verapamil HCl (Verapamil) 5 mg STK-MED ONCE 10/30/19 12:49 10/30/19 12:49 DC Vitamin B Complex/ Vitamin C (Safia-Carol) 1 tab DAILY 10/31/19 09:00 11/01/19 08:12 1 TAB Lab Laboratory Tests Test 10/31/19 18:00 11/01/19 01:30 11/01/19 08:00 Heparin Anti-Xa Act, Unfractionated 0.25 IU/mL (0.30-0.70) 0.32 IU/mL (0.30-0.70) 0.68 IU/mL (0.30-0.70) White Blood Count 7.5 x10^3/uL (4.0-11.0) Red Blood Count 2.86 x10^6/uL (4.30-5.70) Hemoglobin 9.2 g/dL (13.0-17.5) Hematocrit 27.1 % (39.0-53.0) Mean Corpuscular Volume 95 fL (79-100) Mean Corpuscular Hemoglobin 32 pg (25-35) Mean Corpuscular Hemoglobin Concent 34 g/dL (31-37) Red Cell Distribution Width 14.2 % (11.5-14.5) Platelet Count 148 x10^3/uL (140-400) Sodium Level 140 mmol/L (136-145) Potassium Level 5.0 mmol/L (3.5-5.1) Chloride Level 110 mmol/L (98-107) Carbon Dioxide Level 20 mmol/L (21-32) Anion Gap 10 (6-14) Blood Urea Nitrogen 45 mg/dL (8-26) Creatinine 3.1 mg/dL (0.7-1.3) Estimated GFR (Cockcroft-Gault) 19.2 Glucose Level 102 mg/dL (70-99) Calcium Level 7.8 mg/dL (8.5-10.1) Troponin I Quantitative 1.872 ng/mL (0.000-0.055) Results All relevant outside records, renal labs, imaging studies, telemetry/EKG's were reviewed. Justicifation of Admission Dx: Justifications for Admission: Justification of Admission Dx: Yes Chronic Renal Failure: Cardiac Arrhythmias Angina: New-Onset SONJA GHOSH MD Nov 01, 2019 09:09
--- NOTE | 2019-11-01 09:30 | NUR ---
SS following up with discharge planning. SS reviewed pt chart and discussed with pt RN. Pt is currently on room air. Heparin drip to be discontinued today. Per RN, PT/OT evaluated pt and recommended home. Discharge plan is to home when medically ready. SS will continue to follow for discharge planning.
[2019-11-01] MEDS ORDERED: ASPI-886 PO (10:43)
[2019-11-01] MEDS ORDERED: CLOP75TA PO (10:43)
[2019-11-01] MEDS ORDERED: METO50TA6 PO (10:43)
[2019-11-01 10:46] VITALS: BP 141/72
--- NOTE | 2019-11-01 10:47 | SNU/HH DC ---
DISCHARGE WITH HOME HEALTH DISCHARGE INFORMATION: Discharge Date: Nov 01, 2019 Final Diagnosis: Problems Medical Problems: (1) Chest pain Status: Acute (2) Syncope Status: Acute Condition on Discharge: Guarded CODE STATUS: Code Status: DNR/DNI HOME HEALTH: Face to Face: I certify this patient is under my care and that I, or a nurse practitioner or physician's legal support assistant working with me, had a face to face encounter that meets the physician face to face encounter requirements with this patient on 11/01/2019. Intermediate For: Assess/Skilled Observatio, Medication Management RN For Eval/Treatment: Yes Physical Therapy For: Evalulation/Treatment Occupational Therapy For: Evaluation/Treatment Home Health Aide For: Self-care Pt Meets Homebound Status: Fatigue w/ amb., Poor cognition POST DISCHARGE ORDERS: Activity Instructions for Disc: Resume previous activity Weight Bearing Status after Di: Full weight bearing DIET AFTER DISCHARGE: Cardiac CHECKS AFTER DISCHARGE: Checks after discharge: Check blood press - daily, Check your Temp as needed FOLLOW-UP: Follow up with: [facility] CERTIFICATION STATEMENT: Certification Statement: Certification Statement: Based on the above finding, I certify that this patient is confined to the home and needs intermittent retirement care, physical therapy and/or speech therapy, or continues to need occupational therapy.~ This patient is under my care, and I have initiated the establishment of the plan of care.~ This patient will be followed by myself or a community physician who will periodically review the plan of care. Home Meds Active Scripts Aspirin (ASPIRIN EC) 81 Mg Tablet.dr, 81 MG PO DAILYWBKFT for CAD for 90 Days, #90 TAB.SR 3 Refills Prov:SANJU ROBERTS MD 11/01/19 Metoprolol Tartrate (METOPROLOL TARTRATE) 50 Mg Tablet, 50 MG PO BID for CAD for 90 Days, #180 TAB 3 Refills Prov:SANJU ROBERTS MD 11/01/19 Clopidogrel Bisulfate (CLOPIDOGREL) 75 Mg Tablet, 75 MG PO DAILYWBKFT for CAD for 90 Days, #90 TAB 3 Refills Prov:SANJU ROBERTS MD 11/01/19 Reported Medications Finasteride (FINASTERIDE) 5 Mg Tablet, 1 TAB PO DAILY for , #30 TAB 11 Refills 10/30/19 Folic Acid/Vit Bcomp,C (Renal-Carol Tablet) 0.8 Mg Tablet, 1 TAB PO DAILY for for 30 Days, #30 TAB 0 Refills 10/30/19 Cholecalciferol (Vitamin D3) (D3-50) 50,000 Unit Capsule, 56184 UNIT PO DAILY for , CAP 10/30/19 Calcitriol (CALCITRIOL) 0.25 Mcg Capsule, 1 CAP PO TWICE WEEKLY for , #30 CAP 5 Refills 10/30/19 Montelukast Sodium (MONTELUKAST SODIUM TABLET ) 10 Mg Tablet, 10 MG PO HS for FOR ASTHMA, TAB 0 Refills 10/30/19 Tamsulosin Hcl (FLOMAX) 0.4 Mg Cap.er.24h, 2 CAP PO DAILY for , #30 CAP 11 Refills 10/30/19 Famotidine (FAMOTIDINE) 10 Mg Tablet, 5 MG PO BID for , TAB 10/30/19 Discontinued Reported Medications Diltiazem Hcl (CARDIZEM CD) 240 Mg Cap.er.24h, 1 CAP PO DAILY for , #30 CAP 5 Refills 10/30/19 SANJU ROBERTS MD Nov 01, 2019 10:47
--- NOTE | 2019-11-01 10:58 | PDOC ---
CARDIO Progress Notes Date and Time Date of Service 11/01/19 Time of Evaluation 1015 Subjective Subjective: No Chest Pain, No shortness of breath, No Palpitations Vitals Vitals Vital Signs Date Time Temp Pulse Resp B/P (MAP) Pulse Ox O2 Delivery O2 Flow Rate FiO2 11/01/19 10:46 98.2 59 15 141/72 (95) 95 Room Air 98.2 Weight Weight [ ] Input and Output Intake and Output Intake and Output 11/01/19 07:00 Intake Total 1800 ml Output Total 2275 ml Balance -475 ml Intake Oral 1660 ml IV Total 140 ml Output Urine Total 2275 ml Laboratory Labs Laboratory Tests Test 10/31/19 18:00 11/01/19 01:30 11/01/19 08:00 Heparin Anti-Xa Act, Unfractionated 0.25 IU/mL (0.30-0.70) 0.32 IU/mL (0.30-0.70) 0.68 IU/mL (0.30-0.70) White Blood Count 7.5 x10^3/uL (4.0-11.0) Red Blood Count 2.86 x10^6/uL (4.30-5.70) Hemoglobin 9.2 g/dL (13.0-17.5) Hematocrit 27.1 % (39.0-53.0) Mean Corpuscular Volume 95 fL (79-100) Mean Corpuscular Hemoglobin 32 pg (25-35) Mean Corpuscular Hemoglobin Concent 34 g/dL (31-37) Red Cell Distribution Width 14.2 % (11.5-14.5) Platelet Count 148 x10^3/uL (140-400) Sodium Level 140 mmol/L (136-145) Potassium Level 5.0 mmol/L (3.5-5.1) Chloride Level 110 mmol/L (98-107) Carbon Dioxide Level 20 mmol/L (21-32) Anion Gap 10 (6-14) Blood Urea Nitrogen 45 mg/dL (8-26) Creatinine 3.1 mg/dL (0.7-1.3) Estimated GFR (Cockcroft-Gault) 19.2 Glucose Level 102 mg/dL (70-99) Calcium Level 7.8 mg/dL (8.5-10.1) Troponin I Quantitative 1.872 ng/mL (0.000-0.055) Physical Exam HEENT: Neck Supple W Full Motion Chest: Symmetric LUNGS: Clear to Auscultation Heart: S1S2, murmurs (2/6 systolic murmur) Abdomen: Soft N/T Extremities: No Edema Neurology: alert, oriented, follow commands Assessment Assessment 1. ACS; Echo with preserved LV systolic. Refused left heart catheterization due to renal disease, risk for JOSE. Now DNR 2. CKD 3. Hypertension; controlled Recommendations D/c hep gtt ASA, Plavix, BB therapy Allergy to statins Cardiac rehab referral. [facility] Supportive care Plan for home with HH. Okay to discharge from a CV standpoint. Justicifation of Admission Dx: Justifications for Admission: Justification of Admission Dx: Yes Chronic Renal Failure: Cardiac Arrhythmias Angina: New-Onset YENI SCHULZ APRN Nov 01, 2019 10:58
[2019-11-01] MEDS ORDERED: NITR0.4T22 SL (11:25)
--- NOTE | 2019-11-01 11:31 | PDOC3 ---
Discharge Summary Visit Information Date of Admission: Oct 30, 2019 Date of Discharge: Nov 01, 2019 Admitting Diagnosis: Chest pain Final Diagnosis Problems Medical Problems: (1) Chest pain Status: Acute (2) Syncope Status: Acute Brief Hospital Course Allergies Allergies Coded Allergies Type Severity Reaction Last Updated Verified Penicillins Allergy Intermediate 10/31/19 Yes lovastatin Allergy Intermediate 10/31/19 Yes simvastatin Allergy Intermediate 10/31/19 Yes Vital Signs Vital Signs Date Time Temp Pulse Resp B/P (MAP) Pulse Ox O2 Delivery O2 Flow Rate FiO2 11/01/19 10:46 98.2 59 15 141/72 (95) 95 Room Air 98.2 Lab Results Laboratory Tests Test 10/30/19 12:30 10/30/19 12:34 10/30/19 19:00 10/31/19 00:10 White Blood Count 8.8 x10^3/uL (4.0-11.0) Red Blood Count 2.99 x10^6/uL (4.30-5.70) Hemoglobin 9.6 g/dL (13.0-17.5) Hematocrit 28.4 % (39.0-53.0) Mean Corpuscular Volume 95 fL (79-100) Mean Corpuscular Hemoglobin 32 pg (25-35) Mean Corpuscular Hemoglobin Concent 34 g/dL (31-37) Red Cell Distribution Width 14.1 % (11.5-14.5) Platelet Count 187 x10^3/uL (140-400) Neutrophils (%) (Auto) 75 % (31-73) Lymphocytes (%) (Auto) 12 % (24-48) Monocytes (%) (Auto) 9 % (0-9) Eosinophils (%) (Auto) 4 % (0-3) Basophils (%) (Auto) 1 % (0-3) Neutrophils # (Auto) 6.6 x10^3/uL (1.8-7.7) Lymphocytes # (Auto) 1.1 x10^3/uL (1.0-4.8) Monocytes # (Auto) 0.7 x10^3/uL (0.0-1.1) Eosinophils # (Auto) 0.3 x10^3/uL (0.0-0.7) Basophils # (Auto) 0.0 x10^3/uL (0.0-0.2) Prothrombin Time 13.5 SEC (11.7-14.0) Prothromb Time International Ratio 1.1 (0.8-1.1) Activated Partial Thromboplast Time 26 SEC (24-38) Sodium Level 141 mmol/L (136-145) Potassium Level 5.1 mmol/L (3.5-5.1) Chloride Level 109 mmol/L (98-107) Carbon Dioxide Level 19 mmol/L (21-32) Anion Gap 13 (6-14) Blood Urea Nitrogen 52 mg/dL (8-26) Creatinine 3.6 mg/dL (0.7-1.3) Estimated GFR (Cockcroft-Gault) 16.1 BUN/Creatinine Ratio 14 (6-20) Glucose Level 231 mg/dL (70-99) Calcium Level 8.0 mg/dL (8.5-10.1) Magnesium Level 1.8 mg/dL (1.8-2.4) Total Bilirubin 0.3 mg/dL (0.2-1.0) Aspartate Amino Transf (AST/SGOT) 25 U/L (15-37) Alanine Aminotransferase (ALT/SGPT) 40 U/L (16-63) Alkaline Phosphatase 129 U/L (46-116) Troponin I Quantitative 0.018 ng/mL (0.000-0.055) 0.056 ng/mL (0.000-0.055) 1.187 ng/mL (0.000-0.055) XV-Rax-O-Type Natriuretic Peptide 585 pg/mL (0-449) Total Protein 6.1 g/dL (6.4-8.2) Albumin 2.9 g/dL (3.4-5.0) Albumin/Globulin Ratio 0.9 (1.0-1.7) Thyroid Stimulating Hormone (TSH) 0.659 uIU/mL (0.358-3.74) Bedside Troponin I 0.01 ng/ml (<0.08) Test 10/31/19 06:15 10/31/19 18:00 11/01/19 01:30 11/01/19 08:00 Troponin I Quantitative 2.717 ng/mL (0.000-0.055) 1.872 ng/mL (0.000-0.055) Triglycerides Level 72 mg/dL (0-150) Cholesterol Level 98 mg/dL (0-200) LDL Cholesterol, Calculated 48 mg/dL (0-100) VLDL Cholesterol, Calculated 14 mg/dL (0-40) Non-HDL Cholesterol Calculated 62 mg/dL (0-129) HDL Cholesterol 36 mg/dL (40-60) Cholesterol/HDL Ratio 2.7 Heparin Anti-Xa Act, Unfractionated 0.25 IU/mL (0.30-0.70) 0.32 IU/mL (0.30-0.70) 0.68 IU/mL (0.30-0.70) White Blood Count 7.5 x10^3/uL (4.0-11.0) Red Blood Count 2.86 x10^6/uL (4.30-5.70) Hemoglobin 9.2 g/dL (13.0-17.5) Hematocrit 27.1 % (39.0-53.0) Mean Corpuscular Volume 95 fL (79-100) Mean Corpuscular Hemoglobin 32 pg (25-35) Mean Corpuscular Hemoglobin Concent 34 g/dL (31-37) Red Cell Distribution Width 14.2 % (11.5-14.5) Platelet Count 148 x10^3/uL (140-400) Sodium Level 140 mmol/L (136-145) Potassium Level 5.0 mmol/L (3.5-5.1) Chloride Level 110 mmol/L (98-107) Carbon Dioxide Level 20 mmol/L (21-32) Anion Gap 10 (6-14) Blood Urea Nitrogen 45 mg/dL (8-26) Creatinine 3.1 mg/dL (0.7-1.3) Estimated GFR (Cockcroft-Gault) 19.2 Glucose Level 102 mg/dL (70-99) Calcium Level 7.8 mg/dL (8.5-10.1) Laboratory Tests Test 10/31/19 18:00 11/01/19 01:30 11/01/19 08:00 Heparin Anti-Xa Act, Unfractionated 0.25 IU/mL (0.30-0.70) 0.32 IU/mL (0.30-0.70) 0.68 IU/mL (0.30-0.70) White Blood Count 7.5 x10^3/uL (4.0-11.0) Red Blood Count 2.86 x10^6/uL (4.30-5.70) Hemoglobin 9.2 g/dL (13.0-17.5) Hematocrit 27.1 % (39.0-53.0) Mean Corpuscular Volume 95 fL (79-100) Mean Corpuscular Hemoglobin 32 pg (25-35) Mean Corpuscular Hemoglobin Concent 34 g/dL (31-37) Red Cell Distribution Width 14.2 % (11.5-14.5) Platelet Count 148 x10^3/uL (140-400) Sodium Level 140 mmol/L (136-145) Potassium Level 5.0 mmol/L (3.5-5.1) Chloride Level 110 mmol/L (98-107) Carbon Dioxide Level 20 mmol/L (21-32) Anion Gap 10 (6-14) Blood Urea Nitrogen 45 mg/dL (8-26) Creatinine 3.1 mg/dL (0.7-1.3) Estimated GFR (Cockcroft-Gault) 19.2 Glucose Level 102 mg/dL (70-99) Calcium Level 7.8 mg/dL (8.5-10.1) Troponin I Quantitative 1.872 ng/mL (0.000-0.055) Brief Hospital Course Mr Saavedra is an 89 yo w/ PMHx BPH, HTN, HLD, allergic rhinitis who was at a baseball game and developed chest pain. Found via EMS with some ST changes, inferior ST segmental depressions. Upon arrival he was quite hypotensive and bradycardic he apparently did receive some nitroglycerin. 10/30: Cardiology has just talked to the patient and family and he is opposed to cardiac cath due to creatinine of 3.6, he has been offered cath at [facility], but deferred 2/2 CKD and he does not wish to undergo dialysis. Troponin >2, started on heparin GTT today. Symptomatically he is pain free, but depressed, he notes none of his friends were living and his 5 years ago, he does have a very large family with multiple grandchildren and great-grandchildren. He has made it clear he is DNR/DNI. Cr down to 3.1 today. CP resolved. on heparin GTT. discussed with family bedside plans to discharge home on dual antiplatelet therapy and change to metoprolol from diltiazem and have as needed nitroglycerin at home and have outpatient cardiology follow-up Consults: Cardiology Problem list: NSTEMI -GTT, cardiology following. Patient clarified that he will not undergo cardiac catheterization due to concern for contrast nephropathy and desire not to undergo dialysis HTN HLD JENNA on CKD III - improved with gentle IVF resuscitation. Likely 2/2 vasomotor nephropathy with his NSTEMI Allergic rhinitis BPH - Greater than 30 minutes spent on d/c Discharge Information Condition at Discharge: Improved Follow Up: Weeks Disposition/Orders: D/C to Home w/ HH Scheduled Aspirin (Aspirin Ec) 81 Mg Tablet.dr, 81 MG PO DAILYWBKFT for CAD for 90 Days, #90 Ref 3 Prescribed by: SANJU ROBERTS MD on 11/01/19 1043 Calcitriol (Calcitriol) 0.25 Mcg Capsule, 1 CAP PO TWICE WEEKLY for , #30 Ref 5 (Reported) Entered as Reported by: RENEE MACIEL RN on 10/30/191804 Last Action: Continued on 10/31/19754 by SANJU ROBERTS MD Cholecalciferol (Vitamin D3) (D3-50) 50,000 Unit Capsule, 50,000 UNIT PO DAILY for , (Reported) Entered as Reported by: RENEE MACIEL RN on 10/30/191804 Last Action: New Order on 10/30/191804 by RENEE MACIEL RN Clopidogrel Bisulfate (Clopidogrel) 75 Mg Tablet, 75 MG PO DAILYWBKFT for CAD for 90 Days, #90 Ref 3 Prescribed by: SANJU ROBERTS MD on 11/01/19 1043 Famotidine (Famotidine) 10 Mg Tablet, 5 MG PO BID for , (Reported) Entered as Reported by: RENEE MACIEL RN on 10/30/191804 Last Action: New Order on 10/30/191804 by RENEE MACIEL RN Finasteride (Finasteride) 5 Mg Tablet, 1 TAB PO DAILY for , #30 Ref 11 (Reported) Entered as Reported by: RENEE MACIEL RN on 10/30/191804 Last Action: Continued on 10/31/19754 by SANJU ROBERTS MD Folic Acid/Vit Bcomp,C (Renal-Carol Tablet) 0.8 Mg Tablet, 1 TAB PO DAILY for for 30 Days, #30 Ref 0 (Reported) Entered as Reported by: RENEE MACIEL RN on 10/30/191804 Last Action: Continued on 10/31/19754 by SANJU ROBERTS MD Metoprolol Tartrate (Metoprolol Tartrate) 50 Mg Tablet, 50 MG PO BID for CAD for 90 Days, #180 Ref 3 Prescribed by: SANJU ROBERTS MD on 11/01/19 1043 Montelukast Sodium (Montelukast Sodium Tablet ) 10 Mg Tablet, 10 MG PO HS for FOR ASTHMA, Ref 0 (Reported) Entered as Reported by: RENEE MACIEL RN on 10/30/191804 Last Action: Continued on 10/31/19754 by SANJU ROBERTS MD Tamsulosin Hcl (Flomax) 0.4 Mg Cap.er.24h, 2 CAP PO DAILY for , #30 Ref 11 (Reported) Entered as Reported by: RENEE MACIEL RN on 10/30/191804 Last Action: Continued on 10/31/19754 by SANJU ROBERTS MD Scheduled PRN Nitroglycerin (NITROGLYCERIN SubLingual) 0.4 Mg Tab.subl, 0.4 MG SL PRN Q5MIN PRN for CHEST PAIN for 30 Days, #9 Ref 5 Prescribed by: SANJU ROBERTS MD on 11/01/19 112 Discontinued Medications Diltiazem Hcl (Cardizem Cd) 240 Mg Cap.er.24h, 1 CAP PO DAILY for , #30 Ref 5 (Reported) Entered as Reported by: RENEE MACIEL RN on 10/30/191804 Last Action: Continued on 10/31/19754 by SANJU ROBERTS MD Justicifation of Admission Dx: Justifications for Admission: Justification of Admission Dx: Yes Chronic Renal Failure: Cardiac Arrhythmias Angina: New-Onset SANJU ROBERTS MD Nov 01, 2019 11:31
--- NOTE | 2019-11-01 12:01 | NUR ---
Discharge Note: LESLEE [facility]WARDS [facility] Discharge instructions and discharge home medications reviewed with Patient and a copy given. All questions have been answered and understanding verbalized. The following instructions and handouts were given: metoprolol, clopidogrel, and aspirin Patient discharged to home with home health via wheelchair.
--- NOTE | 2019-11-01 12:02 | EKG ---
[facility] [address] [place] [address] Test Date: 2019-10-30 Test Time: 12:35:15 Pat Name: YOMAIRA EDWARDS Department: Room: 203 1 Gender: M [employer] Estate [employer]: : [id number] Requested By: EMMANUELLE MATSON Order Number: [id number] Reading MD: Measurements Intervals [place] Rate: 59 P: CO: QRS: -74 QRSD: 108 T: 66 QT: 438 QTc: 434 Interpretive Statements IRREGULAR RHYTHM, NO P-WAVE FOUND ABNORMAL LEFT AXIS DEVIATION R-S TRANSITION ZONE IN V LEADS DISPLACED TO THE RIGHT S1,S2,S3 PATTERN LEFT ANTERIOR FASCICULAR BLOCK ST & T ABNORMALITY, CONSIDER HIGH LATERAL ISCHEMIA OR LEFT VENTRICULAR STRAIN ABNORMAL ECG RI6.02 No previous ECG available for comparison
--- NOTE | 2019-11-01 12:12 | NUR ---
SS following up with discharge planning. Discharge orders for home healthcare received. SS met with pt and pt's family in room and discussed home healthcare. Pt and pt's family requested referral be phoned and faxed to [facility], ; fax [phone]. SS phoned and faxed discharge orders and referral to [facility].
[2019-11-06] MEDS ORDERED: CALCITRIOL 0.25 MCG CAPSULE. PO SCH (09:00)
== END 2019-11-01 11:50 | disposition home health service (06) | DRG 280 ==
LOC: ER 12:24 → 2 NORTH 14:40
PROVIDERS: ADMIT Internal Medicine; ATTEND Internal Medicine
DX: I21.4 Non-ST elevation (NSTEMI) myocardial infarction (principal); N17.0 Acute kidney failure with tubular necrosis; N18.4 Chronic kidney disease, stage 4 (severe); D64.9 Anemia, unspecified; E11.22 Type 2 diabetes mellitus with diabetic chronic kidney disease; E78.5 Hyperlipidemia, unspecified; I12.9 Hypertensive chronic kidney disease with stage 1 through stage 4 chronic kidney disease, or unspecified chronic kidney disease; Z66 Do not resuscitate; J30.9 Allergic rhinitis, unspecified; I25.10 Atherosclerotic heart disease of native coronary artery without angina pectoris; M19.90 Unspecified osteoarthritis, unspecified site; N40.0 Benign prostatic hyperplasia without lower urinary tract symptoms; Z82.49 Family history of ischemic heart disease and other diseases of the circulatory system; Z87.891 Personal history of nicotine dependence; Z88.0 Allergy status to penicillin; Z88.8 Allergy status to other drugs, medicaments and biological substances
CPT/HCPCS: 36415; 71045; 80048; 80053; 80061; 83735; 83880; 84443; 84484; 85025; 85027; 85520; 85610; 85730; 93005; 93306; 96374; 99285; J0461; J1644; G0378